=== PATIENT | male | born 1955 | race Caucasian/White ===

== ENCOUNTER 2020-09-21 14:54 | Emergency (ER) | payer OTHER, MEDICARE, SELFPAY ==
--- NOTE | ~2020-09-21 | XR_ITS ---
XR knee RT 3V DATE: 09/21/2020 16:33 INDICATION: Right knee pain TECHNIQUE: 3 views COMPARISON: None FINDINGS: There is minimal superior pole patellar enthesopathy. Calcifications of the distal quadrice ps tendon. There is minimal periarticular spurring of the patella consistent with osteoarthritis. There is chondrocalcinosis of medial and lateral compartments of the joint spaces are well preserved. No fracture or dislocation or joint effusion. No periosteal reaction or bone destruction. IMPRESSION: Chondrocalcinosis of medial and lateral compartments Mild osteoarthritis at the patellofemoral joint Calcifications of the distal quadriceps tendon, minimal superior pole patellar enthesopathy Reviewed, dictated and finalized at location A.
--- NOTE | ~2020-09-21 | XR_ITS ---
XR elbow RT min 3V DATE: 09/21/2020 16:33 INDICATION: Right elbow pain TECHNIQUE: 4 views COMPARISON: None FINDINGS: Mild dorsal olecranon process spurring. There is mild osteoarthritic spurring of the radial head. No fracture or dislocation or joint effusion. No periosteal reaction or bone destruction. IMPRESSION: Mild osteoarthritis Mild dorsal olecranon process spurring Reviewed, dictated and finalized at location A.
[2020-09-21 15:34] VITALS: BP 153/73; PULSE 62; RESP 16; TEMP 36.3; O2SAT 100
--- NOTE | 2020-09-21 16:10 | ED.GENADULT ---
HPI - General Adult General Chief complaint: Extremity Problem,Nontraumatic Stated complaint: elbow pain Time Seen by Provider: 09/21/20 15:53 Source: patient and RN notes reviewed Mode of arrival: ambulatory Limitations: no limitations History of Present Illness HPI narrative: Patient presents today complaining of a 2-month history of right knee pain and right elbow pain. Patient is attributing these issues to the COVID-19 vaccine. He has seen his PCP at the [facility] the and has been told he has arthritis. States he has been sent to our [facility] for x-rays, but does not have an order. He has been prescribed some pain relief gel that he is applies to these areas in the mornings and states it does provide some mild relief. He currently rates his knee pain 4/10 and his elbow pain 5/10. MD complaint: Knee and elbow pain. Related Data Home Medications Medication Instructions Recorded Confirmed amlodipine PO 09/21/20 carvedilol PO 09/21/20 Allergies Allergy/AdvReac Type Severity Reaction Status Date / Time vancomycin AdvReac Unknown Seizure Verified 09/21/20 16:22 Review of Systems Review of Systems: Narrative: CONSTITUTIONAL: Denies body aches, fever, chills, or sweats. EYES: Denies visual changes, redness, or discharge. ENT: Denies rhinorrhea, congestion, sore throat, or otalgia. CARDIOVASCULAR: Denies chest pain, palpitations, or edema. RESPIRATORY: Denies cough or dyspnea. GASTROINTESTINAL: Denies abdominal pain, nausea, vomiting, or diarrhea. GENITOURINARY: Denies dysuria or hematuria. SKIN: Denies rash, itching, or wounds. MUSCULOSKELETAL: Denies back pain, or myalgia. + Right knee and elbow pain NEUROLOGIC: Denies headache, numbness, tingling, or weakness. PSYCH: Denies depression or anxiety. [facility] Past Medical History Medical History (Updated 09/21/20 @ 17:14 by Naomi Oliver, ULICES, ) Hypertension Osteoarthritis Surgical History Surgical History (Updated 09/21/20 @ 16:13 by Naomi Oliver, ULICES, ) H/O cervical spine surgery Comments At time of signature, I have reviewed and agree with nursing past medical, surgical, social and family history unless otherwise noted. Please see nursing chart for further information. There is no relevant family history pertinent to the presenting complaint Exam Narrative: Exam Narrative: GENERAL: Well-appearing, well-nourished, and in no acute distress. HEAD: Normocephalic, atraumatic. EYES: EOMI. No redness or drainage. Conjunctivae normal. ENT: Mucous membranes pink and moist. CHEST: No respiratory distress. MUSCULOSKELETAL: Right knee: No edema, ecchymosis, erythema. Tenderness to the medial joint line. Full AROM. Distal sensation intact. Capillary refill normal. Posterior tibial pulse normal. Right elbow: Mild tenderness to the lateral epicondyle. No tenderness about the remainder of the elbow. No edema, ecchymosis, or erythema noted. Full range of motion. Distal sensation intact. Capillary refill normal. Radial pulse normal. EXTREMITIES: Normal range of motion. No edema. SKIN: Warm, dry, no rash. Capillary refill normal. Normal skin turgor. NEURO: No focal deficits. Alert and oriented x3. Gait steady. PSYCH: Normal affect. No signs of depression or anxiety. Course Vital Signs Vital signs: Vital Signs Temperature 97.3 F L 09/21/20 15:34 Pulse Rate 62 09/21/20 15:34 Respiratory Rate 16 09/21/20 15:34 Blood Pressure 153/73 H 09/21/20 15:34 Pulse Oximetry 100 09/21/20 15:34 Temperature 97.3 F L 09/21/20 15:34 Pulse Rate 62 09/21/20 15:34 Respiratory Rate 16 09/21/20 15:34 Blood Pressure 153/73 H 09/21/20 15:34 Pulse Oximetry 100 09/21/20 15:34 Reviewed. Pt has been instructed to follow up with his PCP regarding his elevated blood pressure today. Medical Decision Making Differential Diagnosis Differential Diagnosis: Osteoarthritis, effusion, tendinitis, strain Vital Signs Vital Signs: Vital
== END 2020-09-21 17:18 | disposition home or self-care (01) ==
PROVIDERS: Emergency Provider Nurse Practitioner
DX: M11.261 Other chondrocalcinosis, right knee (principal); I10 Essential (primary) hypertension
CPT/HCPCS: 73080; 73562; 99214; G0463